=== PATIENT | male | born 1980 | race Caucasian/White ===

== ENCOUNTER 2017-12-31 06:34 | Observation (INO) | payer OTHER, SELFPAY ==
[2017-12-31 07:15] LABS: #Basophils 0.1 thou/uL (0.0-0.2); #Lymphocytes 1.8 thou/uL (1.20-3.40); #Monocytes 0.9 thou/uL (0.11-0.59); #Neutrophils 5.6 thou/uL (1.40-6.50); %Basophils 1.1 % (0.0-1.0); %Eosinophils 0.4 % (0.0-10.0); %Lymphocytes 21.1 % (21.0-51.0); %Monocytes 10.5 % (0.0-10.0); %Neutrophils 66.9 % (42.0-75.0); Hemoglobin 14.1 g/dL (14.0-18.0); Mean Corpuscular HGB CONC 34.8 g/dL (32.0-36.0); Mean Corpuscular Hemoglobin 34.7 pg (27.0-31.0); Mean Corpuscular Volume 99.6 fL (78.0-98.0); Mean Platelet Volume 8.7 fL (7.4-10.4); Platelet Count 134 thou/uL (130-400); RBC Distribution Width 12.9 % (11.5-14.5); Red Blood Cell (RBC) Count 4.06 mill/uL (4.70-6.10); White Blood Cell (WBC) Count 8.4 thou/uL (4.8-10.8)
[2017-12-31] MEDS ORDERED: Morphine 4 MG/ML VIAL ONE (07:23)
[2017-12-31 07:37] LABS: ALT (SGPT) 239 U/L (8-55); AST (SGOT) 240 U/L (5-34); Albumin 4.1 g/dL (3.5-5.0); Alcohol 128 mg/dL (Less than 10); Alkaline Phosphatase 77 U/L (40-150); Anion Gap 20 mmol/L (10-20); BUN (Urea Nitrogen) 8 mg/dL (8.9-20.6); Bilirubin, Total 0.6 mg/dL (0.2-1.2); Calc. Creatinine Clearance 0 mL/min (70-130); Calcium 8.4 mg/dL (7.8-10.44); Carbon Dioxide 18 mmol/L (22-29); Chloride 99 mmol/L (98-107); Estimated GFR-MDRD Greater than 90; Globulin 2.8 g/dL (2.4-3.5); Glucose 195 mg/dL (70-105); Lipase 25 U/L (8-78); Potassium 3.4 mmol/L (3.5-5.1); Protein, Total 6.9 g/dL (6.0-8.3); Sodium 134 mmol/L (136-145)
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
[2017-12-31] MEDS ORDERED: Ketorolac Tromethamine 30 MG/ML VIAL ONE (09:14)
[2017-12-31] MEDS ORDERED: Dextrose 5% in Water 1,000 ML IV PRN (10:02)
[2017-12-31] MEDS ORDERED: Ondansetron HCl/PF 4 MG/2 ML Vial IVP PRN (10:02)
[2017-12-31] MEDS ORDERED: Promethazine HCl 25 MG/ML VIAL IM PRN (10:02)
[2017-12-31] MEDS ORDERED: Ondansetron ODT 4 MG TAB PO PRN (10:02)
[2017-12-31] MEDS ORDERED: Dextrose 50% Abboject 50 ML SYRINGE SLOW IVP PRN (10:02)
[2017-12-31] MEDS ORDERED: Rib Fracture Protocol PO SCH ×2 (10:15→11:00)
[2017-12-31 12:54] VITALS: BMI 25.8
[2017-12-31] MEDS ORDERED: Cyclobenzaprine 10 MG TAB PO PRN (13:00)
[2017-12-31] MEDS ORDERED: ISOVUE-370 76%-LOCM 1 ML ONE (14:19)
[2017-12-31] MEDS: Acetaminophen 500 MG TAB PO SCH ×2 (14:20→18:08)
[2017-12-31] MEDS: Gabapentin 300 MG CAP PO SCH ×2 (14:20→21:42)
[2017-12-31] MEDS: Oxazepam 10 MG CAP PO SCH ×2 (14:20→21:43)
[2017-12-31] MEDS: traMADol HCl 50 MG TAB PO SCH ×2 (14:21→18:08)
[2017-12-31] MEDS: Ibuprofen 800 MG TAB PO SCH ×2 (14:21→18:08)
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
[2017-12-31] MEDS ORDERED: Enoxaparin Sodium 40 MG/0.4 ML SYRINGE SC SCH (21:00)
[2017-12-31] MEDS: Famotidine 20 MG TAB PO SCH (21:43)
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
[2017-12-31] MEDS ORDERED: traMADol HCl 50 MG TAB PO SCH (23:59)
[2018-01-01] MEDS ORDERED: traMADol HCl 50 MG TAB PO SCH (00:15)
[2018-01-01] MEDS: Acetaminophen 500 MG TAB PO SCH ×3 (00:51→11:55)
[2018-01-01] MEDS: Ibuprofen 800 MG TAB PO SCH ×3 (00:51→11:55)
[2018-01-01] MEDS: traMADol HCl 50 MG TAB PO SCH ×3 (00:54→11:55)
[2018-01-01 05:15] LABS: #Monocytes 0.7 thou/uL (0.11-0.59); #Neutrophils 5.7 thou/uL (1.40-6.50); %Basophils 0.5 % (0.0-1.0); %Eosinophils 0.3 % (0.0-10.0); %Lymphocytes 13.9 % (21.0-51.0); %Monocytes 8.7 % (0.0-10.0); %Neutrophils 76.5 % (42.0-75.0); Mean Corpuscular HGB CONC 34.2 g/dL (32.0-36.0); Mean Corpuscular Hemoglobin 34.5 pg (27.0-31.0); Mean Platelet Volume 9.4 fL (7.4-10.4); Platelet Count 122 thou/uL (130-400); RBC Distribution Width 12.7 % (11.5-14.5); Red Blood Cell (RBC) Count 3.75 mill/uL (4.70-6.10); White Blood Cell (WBC) Count 7.5 thou/uL (4.8-10.8)
[2018-01-01 05:26] LABS: Anion Gap 10 mmol/L (10-20); BUN (Urea Nitrogen) 8 mg/dL (8.9-20.6); Calc. Creatinine Clearance 176 mL/min (70-130); Calcium 9.5 mg/dL (7.8-10.44); Carbon Dioxide 30 mmol/L (22-29); Chloride 98 mmol/L (98-107); Estimated GFR-MDRD Greater than 90; Glucose 109 mg/dL (70-105); Potassium 4.1 mmol/L (3.5-5.1); Sodium 134 mmol/L (136-145)
[2018-01-01] MEDS: Famotidine 20 MG TAB PO SCH (08:56)
[2018-01-01] MEDS: Oxazepam 10 MG CAP PO SCH (08:57)
[2018-01-01] MEDS: Gabapentin 300 MG CAP PO SCH (08:57)
[2018-01-01] MEDS ORDERED: Senokot 8.6 MG TAB PO SCH (09:00)
[2018-01-01] MEDS ORDERED: Docusate 100 MG CAP PO SCH (09:00)
[2018-01-01] MEDS ORDERED: Folic Acid 1 MG TAB PO SCH (09:00)
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
[2018-01-01 11:26] VITALS: BP 145/81; TEMP 97.7
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
--- NOTE | 2018-01-02 20:52 | EKG ---
Test Reason : Blood Pressure : / mmHG Vent. Rate : 130 BPM Atrial Rate : 130 BPM P-R Int : 130 ms QRS Dur : 088 ms QT Int : 312 ms P-R-T Axes : 047 031 053 degrees QTc Int : 459 ms Sinus tachycardia Otherwise normal ECG Confirmed by TREVIN NIELSON ([id number]), editor continuity and script RICARDO PITTMAN ([id number]) on 01/02/2018 8:51:38 PM Referred By: Confirmed By:TREVIN NIELSON
== END 2018-01-01 14:00 | disposition home or self-care (01) ==
LOC: ERS 06:34 → ERHOLD 08:52 → SURG A 13:10
PROVIDERS: ADMIT Surgery; ATTEND Surgery
DX: S27.892A Contusion of other specified intrathoracic organs, initial encounter (principal); S22.20XA Unspecified fracture of sternum, initial encounter for closed fracture; S22.41XA Multiple fractures of ribs, right side, initial encounter for closed fracture; S00.81XA Abrasion of other part of head, initial encounter; J45.909 Unspecified asthma, uncomplicated; J90 Pleural effusion, not elsewhere classified; G89.11 Acute pain due to trauma; F17.210 Nicotine dependence, cigarettes, uncomplicated; Z79.899 Other long term (current) drug therapy; V67.5XXA Driver of heavy transport vehicle injured in collision with fixed or stationary object in traffic accident, initial encounter
CPT/HCPCS: 36415; 70450; 71045; 71260; 72125; 74177; 80048; 80053; 80307; 83690; 85025; 90471; 90732; 93005; 94640; 96361; 96372; 96374; 96375; G0009; G0378; G0390; G8987-GO-CI; G8988-GO-CI; G8989-GO-CI; J1650; J1885; J2270; J7620